=== PATIENT | male | born 1960 | race Caucasian/White ===

== ENCOUNTER 2017-04-10 21:01 | Emergency (ER) | payer OTHER ==
[2017-04-10 21:02] VITALS: BP 130/77; PULSE 75; RESP 18; TEMP 97.9; O2SAT 97
[2017-04-10] MEDS ORDERED: KETOROLAC TROMETHAMINE 30 MG/ML (IVP) VIAL IV PUSH ONE (22:15)
[2017-04-10] MEDS ORDERED: SODIUM CHLORIDE 0.9% FLUSH 10 ML FLUSH IVF PRN (22:15)
[2017-04-10 22:18] VITALS: RESP 15; O2SAT 98
--- NOTE | 2017-04-10 22:18 | RADRPT ---
EXAM DATE/TIME: 04/10/2017 21:48 [facility] COMPARISON: No previous studies available for comparison. INDICATIONS : Chest pain. Shortness of breath. MEDICAL HISTORY : Pleurisy. SURGICAL HISTORY : None. ENCOUNTER: Initial ACUITY: 1 day PAIN SCORE: 10/10 LOCATION: Right lower chest Posterior FINDINGS: PA and lateral views of the chest demonstrate the lungs to be symmetrically aerated without evidence of mass, infiltrate or effusion. The cardiomediastinal contours are unremarkable. Osseous structure s are intact. CONCLUSION: No acute cardiopulmonary disease. Urbano Cho MD on April 10, 2017 at 22:16 Board Certified Radiologist. This report was verified electronically.
[2017-04-10 22:26] LABS: AUTOMATED NEUTROPHIL # 2.9 TH/MM3 (1.8-7.7); BASOPHIL # 0.1 TH/MM3 (0-0.2); BASOPHIL % 0.8 % (0.0-2.0); EOSINOPHIL # 0.1 TH/MM3 (0-0.4); EOSINOPHIL % 0.9 % (0.0-4.0); HEMATOCRIT 46.7 % (39.0-51.0); HEMO FLAGS DIFF FINAL; LYMPH % 44.7 % (9.0-44.0); LYMPHOCYTE # 3.2 TH/MM3 (1.0-4.8); MEAN CELL VOLUME 85.3 FL (80.0-100.0); MEAN CORPUSCULAR HEMOGLOBIN 28.5 PG (27.0-34.0); MEAN CORPUSCULAR HGB CONC 33.4 % (32.0-36.0); MONO % 12.3 % (0.0-8.0); NEUT % 41.3 % (16.0-70.0); PLATELET COUNT 293 TH/MM3 (150-450); RED BLOOD COUNT 5.48 MIL/MM3 (4.50-5.90); WHITE BLOOD COUNT 7.1 TH/MM3 (4.0-11.0)
[2017-04-10 22:32] LABS: APTT (PATIENT) 22.6 SEC (24.3-30.1); INTERNATIONAL NORMALIZED RATIO 0.9 RATIO
--- NOTE | 2017-04-10 22:33 | PD ---
HPI Chief Complaint: Respiratory Symptoms Time Seen by Provider: 21:59 Travel History International Travel<30 days: No Contact w/Intl Traveler<30days: No Traveled to known affect area: No History of Present Illness HPI 57-year-old male presents for evaluation of right posterior chest wall pain. The patient states that the pain started about 4 hours prior to arrival, as sharp in nature, moderate, worse with deep inspiration. He reports he was diagnosed with pleurisy about 15 years ago and states that the symptoms feel similar. He denies any history of cardiac disease. No history of DVT or PE. No recent travel or immobilization. He has been having a nonproductive cough. No hemoptysis. No fevers or chills. He is a nonsmoker and states he is otherwise a healthy. [facility] Past Medical History Medical History: Denies Significant Hx Social History Alcohol Use: Yes Tobacco Use: No Substance Use: No Allergies-Medications (Allergen,Severity, Reaction): Coded Allergies: No Known Allergies (Unverified , 04/10/17) Reported Meds & Prescriptions Reported Meds & Active Scripts Active No Active Prescriptions or Reported Medications Review of Systems Except as stated in HPI: all other systems reviewed are Neg Physical Exam Narrative GENERAL: Well-developed, well-nourished, comfortable, no apparent distress. SKIN: Focused skin assessment warm/dry. No rash. HEAD: Atraumatic. Normocephalic. EYES: Pupils equal and round. No scleral icterus. No injection or drainage. ENT: Mucous membranes pink and moist. NECK: Trachea midline. No JVD. CARDIOVASCULAR: Regular rate and rhythm. RESPIRATORY: No accessory muscle use. Clear to auscultation. Breath sounds equal bilaterally. GASTROINTESTINAL: Abdomen soft, non-tender, nondistended. MUSCULOSKELETAL: No obvious deformities. No clubbing. No cyanosis. No edema. Bilateral calves are supple, nontender. No midline vertebral step-off or tenderness. No CVA tenderness. No chest wall tenderness. NEUROLOGICAL: Awake and alert. No obvious cranial nerve deficits. Motor grossly within normal limits. Normal speech. PSYCHIATRIC: Appropriate mood and affect; insight and judgment normal. Data Data Last Documented VS Vital Signs Date Time Temp Pulse Resp B/P (MAP) Pulse Ox O2 Delivery O2 Flow Rate FiO2 04/10/17 22:18 15 98 Room Air 04/10/17 21:02 97.9 75 Orders Orders Chest, Pa & Lat (04/10/17 ) Complete Blood Count With Diff (04/10/17 22:02) Comprehensive Metabolic Panel (04/10/17 22:02) Act Partial Throm Time (Ptt) (04/10/17 22:02) Prothrombin Time / Inr (Pt) (04/10/17 22:02) Ckmb (Isoenzyme) Profile (04/10/17 22:02) Troponin I (04/10/17 22:02) Iv Access Insert/Monitor (04/10/17 22:02) Electrocardiogram (04/10/17 22:02) Ecg Monitoring (04/10/17 22:02) Oximetry (04/10/17 22:02) Oxygen Administration (04/10/17 22:02) Ct Pulmonary Angiogram (04/10/17 22:02) Sodium Chloride 0.9% Flush (Ns Flush) (04/10/17 22:15) Ketorolac Inj (Toradol Inj) (04/10/17 22:15) CKMB (04/10/17 22:13) CKMB% (04/10/17 22:13) Iohexol 350 Inj (Omnipaque 350 Inj) (04/10/17 22:55) Urinalysis - C+S If Indicated (04/10/17 23:43) Cyclobenzaprine (Flexeril) (04/11/17 00:30) Labs Laboratory Tests Test 04/10/17 22:13 04/10/17 23:49 White Blood Count 7.1 TH/MM3 Red Blood Count 5.48 MIL/MM3 Hemoglobin 15.6 GM/DL Hematocrit 46.7 % Mean Corpuscular Volume 85.3 FL Mean Corpuscular Hemoglobin 28.5 PG Mean Corpuscular Hemoglobin Concent 33.4 % Red Cell Distribution Width 14.0 % Platelet Count 293 TH/MM3 Mean Platelet Volume 6.5 FL Neutrophils (%) (Auto) 41.3 % Lymphocytes (%) (Auto) 44.7 % Monocytes (%) (Auto) 12.3 % Eosinophils (%) (Auto) 0.9 % Basophils (%) (Auto) 0.8 % Neutrophils # (Auto) 2.9 TH/MM3 Lymphocytes # (Auto) 3.2 TH/MM3 Monocytes # (Auto) 0.9 TH/MM3 Eosinophils # (Auto) 0.1 TH/MM3 Basophils # (Auto) 0.1 TH/MM3 CBC Comment DIFF FINAL Differential Comment Prothrombin Time 10.0 SEC Prothromb Time International Ratio 0.9 RATIO Activated Partial Thromboplast Time 22.6 SEC Blood Urea Nitrogen 13 MG/DL Creatinine 1.11 MG/DL Random Glucose 102 MG/DL Total Protein 7.9 GM/DL Albumin 4.1 GM/DL Calcium Level 9.3 MG/DL Alkaline Phosphatase 93 U/L Aspartate Amino Transf (AST/SGOT) 20 U/L Alanine Aminotransferase (ALT/SGPT) 31 U/L Total Bilirubin 0.7 MG/DL Sodium Level 137 MEQ/L Potassium Level 3.9 MEQ/L Chloride Level 104 MEQ/L Carbon Dioxide Level 27.5 MEQ/L Anion Gap 6 MEQ/L Estimat Glomerular Filtration Rate 69 ML/MIN Total Creatine Kinase 183 U/L Creatine Kinase MB 1.6 NG/ML Troponin I LESS THAN 0.02 NG/ML Urine Color LIGHT-YELLOW Urine Turbidity CLEAR Urine pH 6.0 Urine Specific [place] 1.048 Urine Protein NEG mg/dL Urine Glucose (UA) NEG mg/dL Urine Ketones NEG mg/dL Urine Occult Blood NEG Urine Nitrite NEG Urine Bilirubin NEG Urine Urobilinogen LESS THAN 2.0 MG/DL Urine Leukocyte Esterase NEG Urine RBC LESS THAN 1 /hpf Urine WBC 2 /hpf Microscopic Urinalysis Comment CULT NOT INDICATED MDM Medical Decision Making Medical Screen Exam Complete: Yes Emergency Medical Condition: Yes Interpretation(s) EKG: Sinus, rate 66, normal axis, normal intervals, no acute ischemic abnormality. Differential Diagnosis Chest wall pain, pleurisy, PE, pneumonia, pneumothorax, ACS Narrative Course Vital signs show heart rate 75, blood pressure 130/77, pulse ox 98% on room air , oral temp of 97.9F. CBC: WBCs 7.1, hemoglobin 15.6, hematocrit 46.7, platelets 293. CMP is unremarkable. Cardiac enzymes are negative. Chest x-ray: No acute cardio pulmonary disease. CT pulmonary angiogram: Negative for pulmonary embolism. UA: No occult blood, not suggestive of UTI. Patient made aware of all findings. He was given Toradol without relief of his symptoms. Patient experiences pain mainly with inspiration as well as with movements. It is located in his right upper back region. His symptoms do not sound consistent with ACS, and his EKG does not show any signs of ischemia. I did offer to put him in the chest pain center for further cardiac evaluation, however the patient has declined this. He will be discharged home and advised to follow-up with his primary care physician this week. He was informed on when to return to the emergency department. He verbalizes understanding and agreement with plan. Diagnosis Primary Impression: Mid back pain on right side Referrals: Primary Care Physician 3 days Additional Instructions: Follow-up with your primary care physician this week. Return to the emergency department for worsening symptoms or any other concerns. Scripts Naproxen (Naprosyn) 500 Mg Tab 500 MG PO BID for 10 Days, #20 TAB 0 Refills Prov: Alexander Redd MD 04/11/17 Cyclobenzaprine (Flexeril) 10 Mg Tab 10 MG PO TID for Muscle Spasm, #15 TAB 0 Refills Prov: Alexander Redd MD 04/11/17 Disposition: 01 DISCHARGE HOME Condition: Stable Alexander Redd MD Apr 10, 2017 22:33
[2017-04-10 22:44] LABS: ALT (GPT) 31 U/L (12-78)
[2017-04-10 22:47] LABS: ALKALINE PHOSPHATASE 93 U/L (45-117); ANION GAP 6 MEQ/L (5-15); AST (GOT) 20 U/L (15-37); BICARBONATE 27.5 MEQ/L (21.0-32.0); BLOOD UREA NITROGEN 13 MG/DL (7-18); CHLORIDE 104 MEQ/L (98-107); CREATINE KINASE 183 U/L (39-308); GLOMERULAR FILTRATION RATE 69 ML/MIN (>89); POTASSIUM 3.9 MEQ/L (3.5-5.1); SODIUM (NA) 137 MEQ/L (136-145); TOTAL BILIRUBIN ADULT 0.7 MG/DL (0.2-1.0)
[2017-04-10] MEDS ORDERED: IOHEXOL 350 MG/ML 10 ML VIAL (for RAD DIAG) IVCONTRAST ONE (22:55)
[2017-04-10 23:00] LABS: CKMB 1.6 NG/ML (0.5-3.6)
--- NOTE | 2017-04-10 23:00 | RADRPT ---
EXAM DATE/TIME: 04/10/2017 22:48 [facility] COMPARISON: No previous studies available for comparison. INDICATIONS : Right rib pain, evaluate for pulmonary emboli. IV CONTRAST: 75 cc Omnipaque 350 (iohexol) IV RADIATION DOSE: 19.55 CTDIvol (mGy) MEDICAL HISTORY : None SURGICAL HISTORY : None. ENCOUNTER: Initial ACUITY: 1 day PAIN SCALE: 7/10 LOCATION: Right chest TECHNIQUE: Volumetric scanning of the chest was performed using a pulmonary embolism protocol MIP images were re constructed. Using automated exposure control and adjustment of the mA and/or kV according to patien t size, radiation dose was kept as low as reasonably achievable to obtain optimal diagnostic quality images. DICOM format image data is available electronically for review and comparison. Follow-up recommendations for detected pulmonary nodules are based at a minimum on nodule size and pa tient risk factors according to Fleischner Society Guidelines. FINDINGS: PULMONARY ARTERIES: No filling defects are seen in the pulmonary arteries through the segmental level. LUNGS: There is no consolidation or pneumothorax . No concerning pulmonary nodule is visualized. PLEURAE: There is no pleural thickening or pleural effusion. MEDIASTINUM: There is good visualization of the great vessels of the middle mediastinum. No evidence of mediastin al or hilar adenopathy/mass. CONCLUSION: The study is negative for pulmonary embolism. Urbano Cho MD on April 10, 2017 at 22:57 Board Certified Radiologist. This report was verified electronically.
[2017-04-11 00:12] LABS: BLOOD, URINE NEG (NEG); GLUCOSE,URINE NEG (NEG); KETONE, URINE NEG (NEG); NITRITE,URINE NEG (NEG); URINE COLOR LIGHT-YELLOW (YELLW/STRAW)
[2017-04-11 00:13] LABS: COMMENT (UR) CULT NOT INDICATED; CULTURE IF INDICATED CULT NOT INDICATED
[2017-04-11] MEDS ORDERED: CYCL10TA PO (00:21)
[2017-04-11] MEDS ORDERED: NAPR500 PO (00:21)
[2017-04-11] MEDS ORDERED: CYCLOBENZAPRINE HCL 10 MG TAB PO ONE (00:30)
--- NOTE | 2017-04-11 10:28 | EKG ---
Date Performed: 04/10/2017 Time Performed: 23:19:43 PTAGE: 57 years EKG: Sinus rhythm MODERATE INTRAVENTRICULAR CONDUCTION DELAY BORDERLINE ECG PREVIOUS TRACING : 07/30/2000 14.55 DOCTOR: Kashmir Lindo Interpretating Date/Time 04/11/2017 10:26:26
== END 2017-04-11 00:48 | disposition home or self-care (01) ==
LOC: NEPD 21:01
DX: M54.6 Pain in thoracic spine (principal)
CPT/HCPCS: 71020; 71275; 80053; 81001; 82550; 82552; 84484; 85025; 85610; 85730; 93005; 96374; 99285; J1885; Q9967